=== PATIENT | male | born 1995 | race Hispanic/Latino ===

== ENCOUNTER 2016-09-15 22:13 | Emergency (ER) | payer MEDICAID, OTHER ==
[~2016-09-15] VITALS: Ht 172.7 cm; Wt 122.7 kg
[2016-09-15 22:17] VITALS: BP 171/101; PULSE 89; RESP 16; O2SAT 99
[2016-09-15 22:50] LABS: APPEARANCE,URINE CLEAR (CLEAR,HAZY); COLOR,URINE BLOODY (YELLOW); OCCULT BLOOD,URINE LARGE (NEGATIVE); UROBILINOGEN,URINE NORMAL (NORMAL)
--- NOTE | 2016-09-15 22:53 | ED.REPORT ---
HPI-Trauma Minor / Fall Date of Service Sep 15, 2016 ED Provider: Kevin Corral MD A 21 year old male with no pertinent medical history presents to the ED complaining of hematuria. The pt was hit by an elbow in the left low back earlier today while playing basketball. He began experiencing hematuria soon after. He denies back or abdominal pain. The pt experienced similar symptoms in 01/2016 when he was hit in the back while playing basketball. He was diagnosed with a "bruised kidney" at that point. Nursing Notes Stated Complaint: BLOOD IN URINE Chief Complaint: Male Abdominal Pain Nursing Notes Reviewed: Yes Allergies: Coded Allergies: No Known Allergies (Unverified , 09/15/16) General Time Seen by MD: 22:44 Chief Complaint Other (Hematuria) Hx Obtained From: Patient Arrived By: Walk-in Onset Occurred: 1 - 4 hours ago Symptom Duration: Intermittent Recent Healthcare: No recent hospitalization, Recent doctor visit Similar Sx Previous: Yes Past Medical History Past Medical History "bruised kidney" with hematuria Past Surgical History none reported Smoking History Unknown if Ever Smoker Ambulatory Status Independent Review of Systems Respiratory: Denies: Non-productive cough, Shortness of breath Musculoskeletal: Denies: Back pain Skin: Denies Rash Complete sys rev & neg: except as marked. Female: Reports: Hematuria Physical Exam Initial Vital Signs Vital Signs (First) Date Time Temp Pulse Resp B/P Pulse Ox O2 Delivery O2 Flow Rate FiO2 09/15/16 22:17 36 89 16 171/101 99 Room Air Initial VS: Reviewed, Vital signs abnormal General/Constitutional: Awake, Alert overweight Neck: Atraumatic, Supple, Full range of motion Head / Eyes: Atraumatic, Normocephalic, PERRL, EOMI ENT: Atraumatic, Airway patent, Mucous membranes moist Respiratory / Chest: Atraumatic, Breath sounds NL, Breath sounds = bilat, No respiratory distress Cardiovascular: Heart rate NL, Regular rhythm, Heart sounds NL Abdomen: Atraumatic, Soft, Non-tender Back: Atraumatic, Full range of motion, No CVA tenderness Upper Extremity / MS: Atraumatic, Full range of motion Lower Extremity / Pelvis / MS: Atraumatic, Full range of motion Skin: Atraumatic, Color NL, No rash, Warm, Dry Neurologic: Oriented X3, Speech NL, No motor deficits, No sensory deficits Psychiatric: Affect NL, Mood NL Interpretation & Diagnostics Lab Results Interpretation Result Diagram: 09/15/16 2315 09/15/16 2315 Test 09/15/16 22:32 09/15/16 23:15 Urine Color Bloody (YELLOW) Urine Appearance Clear (CLEAR,HAZY) Urine pH 6.0 (5.0-8.0) Urine Specific Frederic 1.003 (1.003-1.035) Urine Protein 100mg/dL (NEG,TRACE) Urine Glucose (UA) Negativemg/dL (NEGATIVE) Urine Ketones Negativemg/dL (NEGATIVE) Urine Occult Blood Large (NEGATIVE) Urine Nitrite Negative (NEGATIVE) Urine Bilirubin Negative (NEGATIVE) Urine Urobilinogen Normalmg/dL (NORMAL) Urine Leukocyte Esterase Trace (NEGATIVE) Urine RBC >50/hpf (0-2) Urine WBC 0-5/hpf (0-5) Urine Epithelial Cells Occasional/hpf (NONE-MOD) Urine Crystals None seen (NONE SEEN) Urine Bacteria Few/hpf (NONE-FEW) Urine Hyaline Casts None/lpf (NONE) Urine Granular Casts None seen (NONE SEEN) Urine Waxy Casts None seen (NONE SEEN) Urine Red Blood Cell Casts None seen (NONE SEEN) Urine White Blood Cell Casts None seen (NONE SEEN) Urine Mucus None seen (None Seen) Urine Trichomonas None seen (NONE SEEN) Urine Yeast None (NONE SEEN) Urinalysis Comment None Urine Culture Reflexed Not indicated White Blood Count 16.5th/mm3 (3.8-10.1) Red Blood Count 5.81mil/mm3 (4.40-5.80) Hemoglobin 15.2g/dL (13.8-17.2) Hematocrit 45.4% (41.0-50.0) Mean Corpuscular Volume 78.1fL (81-100) Mean Corpuscular Hemoglobin 26.2pg (27.0-35.0) Mean Corpuscular Hemoglobin Concent 33.5% (32.0-37.0) Red Cell Distribution Width 14.0% (12.3-15.4) Platelet Count 416bil/L (150-400) Neutrophils (%) (Auto) 83.9% (40-74) Lymphocytes (%) (Auto) 11.7% (14-46) Monocytes (%) (Auto) 3.8% (4-12) Eosinophils (%) (Auto) 0.3% (0-5) Basophils (%) (Auto) 0.1% (0-3) Prothrombin Time 10.1sec (8.1-12.5) Prothromb Time International Ratio 0.95ratio Sodium Level 137mEq/L (134-144) Potassium Level 3.6mEq/L (3.5-5.2) Chloride Level 97mEq/L (97-108) Carbon Dioxide Level 21mmol/L (18-29) Blood Urea Nitrogen 12mg/dL (6-20) Creatinine 0.99mg/dL (0.76-1.27) Estimat Glomerular Filtration Rate 100mL/min (>59) Glucose Level 103mg/dL (60-99) Calcium Level 10.1mg/dL (8.5-10.1) Magnesium Level 2.3mg/dL (1.6-2.6) Total Bilirubin 0.3mg/dL (0.0-1.2) Aspartate Amino Transf (AST/SGOT) 23U/L (0-50) Alanine Aminotransferase (ALT/SGPT) 29U/L (0-44) Alkaline Phosphatase 148U/L (25-150) Total Protein 9.1g/dL (6.4-8.4) Albumin 5.2g/dL (3.4-5.0) Lab Results Interpretation: Elevated white blood count, greater than 50 wbc per hpf urine CT Abd / Pelvis Interpretation CONCLUSION: Heterogeneously hyperdense masslike left renal lesion in the upper pole calyx with mild caliectasis, likely an obstructing blood clot. A neoplasm is not excluded. Interpretation / Wet Read by: Interpret - Radiologist Re-Eval/Medical Decision Med Decision/Clinical Course When he 1-year-old male who was hit in the left flank pain basketball. He now is urinating blood. CT scan shows that he has a intra-calyceal hematoma. Mass cannot be excluded. Case was discussed with Dr. Menendez and the patient will be discharged home with instructions for bedrest, visual monitoring of the urine , and follow up with her in 2-3 weeks. Source of Hx: Old records Re-Evaluation/Progress : Time of Eval: 01:09 Patient Status: Condition improved Re-Evaluation/Progress Note: Pt rechecked, who is resting comfortably. The diagnosis and plan for discharge are discussed. The pt understands and agrees with the plan. All questions are addressed at this time. Consultation : Referral / Consult Name: Magali Menendez MD Call Returned at: 01:00 Note: Consulted with Dr. Menendez, urology, regarding pt's case. Dr. Menendez does not suspect cancer due to the pt's demographic, but recommends bed rest and monitoring urine. The pt needs to be seen if his symptoms are not improving. Dr. Hamilton will see the pt in two to three weeks for follow up. Counseled Regarding: Diagnosis, Lab results, Need for follow-up, When/why to return to ED Discharge & Departure Impression: Primary Impression: Traumatic hematuria Additional Impression: Hematoma of kidney, closed Encounter type: initial encounter Laterality: left Qualified Code: S37.012A - Minor contusion of left kidney, initial encounter Disposition: Home Discharge Condition All VS Reviewed: Yes Condition: Stable Patient Instructions: Hematuria (ED) Additional Instructions: You had bleeding in your left kidney and there is a clot. The bleeding appears to stopped. There is no other injury noted. Your case was discussed with Dr. Menendez, urologist. She recommended bed rest for one to 2 weeks, observe the urine daily to make sure that it is getting less red every day, and follow up with her in 2-3 weeks. Return to the emergency room if you have increased pain. Referrals: [facility] Meg Attestation Portions of this note were transcribed by Armand Londono. I, Dr. Corral personally performed the history, physical exam and medical decision-making; I reviewed and confirmed the accuracy of the information in the transcribed note. Signed by: Meg Rangel, 09/16/2016 and 0119. copies to: [facility] Kevin Corral MD Sep 15, 2016 22:53 ARMAND LONDONO Sep 15, 2016 23:02
[2016-09-15] MEDS ORDERED: 0.9% Sodium Chloride 1,000 ML IV ONE (22:54)
[2016-09-15] MEDS ORDERED: Ondansetron 2 mg/mL 2 mL Inj IV PRN (22:55)
[2016-09-15 23:28] LABS: BASOPHILS % (AUTO) 0.1 % (0-3); EOSINOPHILS % (AUTO) 0.3 % (0-5); MONOCYTES % (AUTO) 3.8 % (4-12); Mean Corpuscular Hemoglobin 26.2 pg (27.0-35.0); Mean Corpuscular Volume 78.1 fL (81-100); NEUTROPHILS % (AUTO) 83.9 % (40-74); Platelet Count 416 bil/L (150-400)
[2016-09-15 23:50] LABS: INR 0.95 ratio
[2016-09-15 23:54] LABS: Magnesium 2.3 mg/dL (1.6-2.6)
[2016-09-16 01:40] VITALS: BP 110/75; PULSE 85; RESP 16; O2SAT 96
--- NOTE | 2016-09-16 08:13 | DRSVH ---
PROCEDURE: CT ABDOMEN AND PELVIS WITH CONTRAST ([id number]) INDICATIONS: Left flank pain after trauma to the left flank with gross hematuria. TECHNIQUE: After the administration of intravenous contrast, 5 mm thick sections acquired from the diaphragm to the symphysis. 5 mm coronal and sagittal reformats were acquired. For radiation dose reduction, the following was used: automated exposure control, adjustment of mA and/or kV according to patient siz e. COMPARISON: None. FINDINGS: Image quality: Excellent. ABDOMEN: Lung bases: Lung bases are clear. Heart size is normal. Solid organs: The left kidney is mildly enlarged and demonstrates decreased enhancement. There is a mass in the superior pole the left kidney within the renal collecting system measuring 2.6 x 2.2 cm. There is a duplicated left renal collecting system. Right kidney is normal in size and enhancement wi thout hydronephrosis. There is mild pelviectasis in the inferior pole of the left kidney. Liver and spleen are normal in size and enhancement. Gallbladder is normal. Biliary system is non d ilated. Pancreas enhances normally. No adrenal nodules. Peritoneum and bowel: Bowel loops demonstrate normal wall thickness and caliber. No free fluid or a ir. Nodes and vessels: No retroperitoneal or mesenteric adenopathy by size criteria. Aorta and inferior vena cava are normal in size. Miscellaneous: No ventral hernias. PELVIS: Genitourinary: Bladder wall thickness is normal. Miscellaneous: No inguinal hernias or adenopathy. Bones: No suspicious bony lesions. No vertebral body compression fractures. IMPRESSION: 1. Left kidney is mildly enlarged with decreased enhancement. There is a 2.6 x 2.2 cm mass in the sup erior pole of the left kidney within the collecting system. In the setting of acute trauma, the CT fi ndings may be secondary to renal contusion and a hematoma in the left renal collecting system. There is trace left pelviectasis. A differential diagnosis for the left renal mass is neoplasm. Recommend s hort interval ultrasound followup. 2. 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 No significant discrepancy with the [facility] radiology preliminary report. Dictated by: Lavern Adams M.D. on 09/16/2016 at 8:07 Transcribed by: HOLLY on 09/16/2016 at 8:14 Approved by: Lavern Adams M.D. on 09/16/2016 at 9:37
== END 2016-09-16 01:41 | disposition home or self-care (01) ==
LOC: SED 22:13
DX: S37.012A Minor contusion of left kidney, initial encounter (principal); W22.8XXA Striking against or struck by other objects, initial encounter; Y92.9 Unspecified place or not applicable; Y93.67 Activity, basketball; Y99.8 Other external cause status; R31.9 Hematuria, unspecified; Z87.828 Personal history of other (healed) physical injury and trauma
CPT/HCPCS: 36415; 74177; 80053; 81000; 83735; 85025; 85610; 96361; 96374; 99285; J2405; J7030; Q9967